=== PATIENT | female | born 1990 | race Caucasian/White ===

== ENCOUNTER → 2020-09-23 10:38 | Outpatient (CLI) | payer BC, SELFPAY ==
--- NOTE | 2020-09-23 | DI.US.S_ITS ---
PROCEDURE: US OB >= 14 WEEKS FETUS INDICATIONS: 20 WEEK ANATOMICAL SURVEY OUTSIDE/PRIOR DATING DATA: Last menstrual period (LMP): 04/29/2020. LMP-based estimated date of delivery (MARY): 02/03/2021 . First dating scan (date and location): 09/23/2020 . Estimated date of delivery (MARY) from first dating scan: 01/30/2021 . TECHNIQUE: Real-time scanning was performed of the fetus, with image documentation and biometric measurements. Endovaginal scanning: No COMPARISON: None. FINDINGS: General: A single living intrauterine gestation is present. Presentation: Vertex. Placenta: Placental position is posterior fundal , without previa. Amniotic fluid index: 10.1 cm, normal range is 5-24 cm. heart rate: 139 beats per minute. Maternal cervical canal: 4.1 cm long. Normal lower limit is 2.5 cm. biometrics: Biparietal diameter: 20 weeks 4 days Head circumference: 21 weeks Abdominal circumference: 22 weeks 1 day Femur length: 22 weeks 2 days Estimated gestational age from initial scan: 21 weeks 4 days Composite gestational age from present scan: 21 weeks 4 days Estimated weight and percentile: 471 g; 90 second percentile Measurement variability for biometric dating: +/- 7 days from 14 weeks to 15 weeks 6 days gestation, +/- 10 days from 16 weeks to 21 weeks 6 days gestation, +/- 2 weeks from 22 weeks to 27 weeks 6 days gestation, +/- 3 weeks for 28 weeks gestation or later. weight reference: 4500 g or EFW >90/95% is considered macrosomia or large for gestational age. EFW <10% is small for gestational age. EFW 5% or less is considered intra-uterine growth restriction. Anatomic survey: Neuro: Ventricles are non-dilated at less than 10 mm. Cisterna magna is normal at 3-11 mm. Cerebellum is normal in size and morphology. Nuchal skin fold: Normal at less than 6 mm between 14-21 weeks gestational age. Face: Nose and lips, facial profile are normal. Spine: No evidence for spina bifida. Heart: 4-chambered heart is present, with normal ventricular outflow tracts. Diaphragm: Diaphragm is intact. Stomach: Left-sided stomach is present. Kidneys: No hydronephrosis. Normal is less than 5 mm in 2nd trimester, less than 7 mm in 3rd trimester. Cord: 3-vessel cord has orthotopic insertion. Bladder: Normal in size. Extremities: All 4 extremities identified. IMPRESSION: 1. Single living IUP redemonstrated and interval growth is upper limits of normal. 2. Normal anatomic survey. Dictated by: Greg Marrero [facility] Interpreted: Terese Palma MD on 09/23/2020 at 14:02 Approved by: Terese Palma M.D. on 09/23/2020 at 15:05
== END ==
PROVIDERS: PCP Family Medicine; Referring Provider Family Medicine; Visit Provider Nurse Practitioner Obstetrics & Gynecology
DX: Z36.89 Encounter for other specified antenatal screening (principal); Z3A.21 21 weeks gestation of pregnancy
CPT/HCPCS: 76811

== ENCOUNTER → 2020-11-18 11:38 | Outpatient (CLI) | payer BC, SELFPAY ==
[2020-11-18 12:53] LABS: Hematocrit 34.6 % (36-46); Hemoglobin 12.1 g/dL (12.0-16.0); Mean Corpuscular HGB Conc 35.1 % (30-36); Mean Corpuscular Hemoglobin 31.3 PG (26-34); Mean Corpuscular Volume 89.4 fL (80-100); Platelet Count 154 X10^3/uL (150-400); Red Blood Cell Count 3.87 X10^6/uL (4.0-5.2); Red Cell Distribution Width 13.5 % (11.6-14.8); White Blood Cell Count 9.3 X10^3/uL (4.5-11.0)
[2020-11-18 12:56] LABS: GTT (PREG) 1 Hour PP 50gm Dose 69 mg/dL (76-139)
== END ==
PROVIDERS: PCP Family Medicine; Referring Provider Nurse Practitioner Obstetrics & Gynecology; Visit Provider Nurse Practitioner Obstetrics & Gynecology
DX: Z34.90 Encounter for supervision of normal pregnancy, unspecified, unspecified trimester (principal); Z13.1 Encounter for screening for diabetes mellitus; Z3A.29 29 weeks gestation of pregnancy
CPT/HCPCS: 36415; 82950; 85027

== ENCOUNTER → 2021-01-10 14:33 | Outpatient (ROUT) | payer BC, SELFPAY | PROVIDERS: PCP Family Medicine; Visit Provider Nurse Practitioner Obstetrics & Gynecology | DX: Z34.90 Encounter for supervision of normal pregnancy, unspecified, unspecified trimester (principal); Z36.85 Encounter for antenatal screening for Streptococcus B; Z3A.36 36 weeks gestation of pregnancy | CPT/HCPCS: 87081 ==

== ENCOUNTER 2021-02-06 21:46 | Inpatient (IN) | payer BC, SELFPAY ==
--- NOTE | 2021-02-06 21:51 | PM.OBHP.1 ---
OB HPI Date/Time Date of admission: 02/06/21 Date Patient Seen: 02/06/21 Time Patient Seen: 21:52 History of Present Condition Chief complaint: observation of labor : 2 Para: 1 Estimated Date of Delivery: 02/03/21 Estimated Gestational Age (weeks): 40.3 Narrative: Rena Wells is a 30 year old female @ [id number] by LMP and 10wk US presents for evaluation of labor. Contractions started this evening and have progressed in frequency and intensity. Noticed small amounts of bloody show when wiping tonight. +FM. No LOF. Uncomplicated PN care w/ CNM. Desires low intervention . History of Present care: good care, initiated at week # (10), number of visits (10) and pounds weight gain (29) Dating criteria: LMP confirmed by 1st trimester US Ultrasounds: normal mid trimester US Obstetrical complications: none Medical complications: none Preadmission Labs Blood type: O (+) positive -: Antibody screen: negative, GBS status: negative, HBsAG: negative, HIV: negative, HSV 1: negative and RPR/VDLR: negative -: Chlamydia screen: not detected and Gonorrhea screen: not detected -: Rubella: immune HCT: 34.6 HCAB: negative Cell-free DNA: Negative, male 1 hr GTT: 69 Prior (ies) History: 04/10/18- NSVB @ 414wks, 7#4oz, female, no meds, no lacs, no complications Evaluation Evaluation Baseline heart rate: 130 Variability: Moderate (11-25) monitor accelerations: Present Monitor Decelerations: Absent Contraction Frequency (minutes): 4 Uterine Contraction Intensity: Strong/Firm Status: Category l Cervical dilation (cm): 5 Cervical effacement (%): 80 station: -2 [facility] Medical History Acne (~2002) Allergies (~1991) Chicken pox (~1994) Fibroids (~2008) Irregular menstrual cycle (~2018) Family History Father No problems noted. Mother No problems noted. Grandfather Cancer Grandmother Cancer Social History Smoking Status: Former smoker quit status: has quit before second hand exposure: No alcohol intake: current substance use type: former substance user and marijuana Meds Home Medications and Allergies Home Medications Medication Instructions Recorded Confirmed Type multivitamin 1 tab PO DAILY 08/24/19 02/06/21 History Allergies Allergy/AdvReac Type Severity Reaction Status Date / Time adhesive [ADHESIVE] Allergy Mild LOCAL RASH Verified 10/19/19 14:56 corn [CORN] Allergy Mild BODY RASH Verified 10/19/19 14:56 gluten [GLUTEN] Allergy Mild ABD Verified 10/19/19 14:56 CRAMPING peanut [PEANUT] Allergy Mild BODY RASH Verified 10/19/19 14:56 Milk Containing Products Allergy Unknown Verified 10/19/19 14:56 [MILK CONTAINING PRODUCTS] Penicillins [PENICILLINS] Allergy Unknown Verified 10/19/19 14:56 soy [SOY] Allergy Unknown Verified 10/19/19 14:56 Sulfa (Sulfonamide Allergy Unknown UNKNOWN Verified 10/19/19 14:56 Antibiotics) [SULFA (SULFONAMIDE ANTIBIOTICS)] Review of Systems Review of Systems ROS: Yes All systems reviewed with the patient and are negative except as otherwise documented Exam Vital Signs (past 8 hours): BP 119/74, HR 78bpm, T 36.6C Temporal Resp Effort & Inspection: normal respiratory effort Auscultation: clear to auscultation bilaterally Cardio Rate: regular rate Rhythm: regular rhythm Heart Sounds: S1 normal and S2 normal Presentation: vertex Objective Labs Result Diagrams: 02/06/21 22:55 Assessment and Plan Assessment and Plan Assessment and Plan narrative: A: Term primipara Active labor No indication for GBS prophylaxis Cat I FHR P: Admit, routine orders. Continuous labor support. Anticipate NSVB.
[2021-02-06 22:32] VITALS: BP 119/74
[2021-02-06 23:05] LABS: Add Manual Diff / Slide Review NO; Basophils Absolute Auto 100 /uL (0-100); Basophils Percent Auto 0.6 % (0-2); Eosinophils Absolute Auto 100 /uL (0-450); Eosinophils Percent Auto 0.6 % (2-4); Hematocrit 35.8 % (36-46); Hemoglobin 12.3 g/dL (12.0-16.0); Lymphocytes Absolute Auto 2100 /uL (1100-4500); Lymphocytes Percent Auto 20.1 % (25-40); Mean Corpuscular HGB Conc 34.4 % (30-36); Mean Corpuscular Hemoglobin 30.9 PG (26-34); Mean Corpuscular Volume 89.8 fL (80-100); Monocytes Absolute Auto 800 /uL (0-900); Monocytes Percent Auto 7.6 % (3-14); Neutrophils Absolute Auto 7600 /uL (1500-7000); Neutrophils Percent Auto 71.1 % (50-75); Platelet Count 148 X10^3/uL (150-400); Red Blood Cell Count 3.99 X10^6/uL (4.0-5.2); Red Cell Distribution Width 12.7 % (11.6-14.8); White Blood Cell Count 10.6 X10^3/uL (4.5-11.0)
[2021-02-06 23:33] LABS: COVID19 - ADMIT (NP swab/PCR) Negative (Negative)
--- NOTE | 2021-02-07 01:15 | P.PCNOB_ITS ---
Labor & Delivery Delivery date: 02/07/21 Cervical ripening method: none Induction method: none Delivery monitor: external FHT and external uterine Route of delivery: L&D Laceration Description: None Estimated blood loss (mL): 450 Anesthesia Type: None Narrative: Patient labored well without medication or augmentation. Rena began to feel a spontaneous urge to push and was presumed to be complete. Minimal coaching and strong maternal efforts led to a NSVB of a viable baby boy in KATEY position w/ no nuchal cord and easy delivery of the shoulders. [place] was placed on maternal abdomen for drying and stimulation. Rena declined AMTSL. Placental separation was noted prior to cessation of pulsation so the cord was double clamped by CNM and cut by FOB. Hospital cord blood sample was collected. Spontaneous Schultze delivery of an apparently intact placenta, membranes and 3VC w/ a large amount of blood in the membranes. Funus massaged firm and bleeding minimal. Vagina and perineum inspected and intact. QBL 450mL, entirely w/ placenta. Both mother and baby stable and skin to skin as I left the room. Baby 1: Infant gender: Male Presentation: vertex Position: Right Occiput Anterior Placenta delivery description: Spontaneous Cord Vessel Description: 3 Vessels score (1 min): 7 score (5 min): 8 Narrative: weight: 3373grams/ 7#7oz Plan for aftercare: Routine care (Recommended 30 untis of pitocin in 500mL LR if any significant bleeding and patient agreed. )
[2021-02-07] MEDS: KETOROLAC 30 MG/ML VIAL IV (02:04)
--- NOTE | 2021-02-07 06:56 | PM.OBDS.1 ---
Discharge Providers Provider Date of admission: 02/06/21 21:46 Discharge Date: 02/07/21 Primary care physician: Will Alaniz DO Consults: 02/08/21 01:12 Consult to [place] Clerk Routine Comment: Discharge provider: Nasra Croft CNM Summary Discharge Diagnosis (1) Encounter for full-term uncomplicated delivery: Status: Acute Problem Details: Rena is voiding, ambulating and independently. Bleeding is scant. Tolerating her regular diet. Cramping pain with is well controlled Eager for discharge to home, as soon as possible. Time Spent with Patient Time attestation: Total time spent providing and/or coordinating discharge services: 25minutes Objective Labs Result Diagrams: 02/06/21 22:55 Labs: Laboratory Results - last 24 hr 02/06/21 02/06/21 02/06/21 22:15 22:55 22:55 WBC 10.6 RBC 3.99 L Hgb 12.3 Hct 35.8 L MCV 89.8 MCH 30.9 MCHC 34.4 RDW 12.7 Plt Count 148 L Neut % (Auto) 71.1 Lymph % (Auto) 20.1 L [place] % (Auto) 7.6 Eos % (Auto) 0.6 L Baso % (Auto) 0.6 Neut # (Auto) 7600 H Lymph # (Auto) 2100 [place] # (Auto) 800 Eos # (Auto) 100 Baso # (Auto) 100 SARS-CoV-2 (PCR) Negative Blood Type O Positive Antibody Screen Negative Exam Vital Signs (past 8 hours): BP 118/79, [id number], RR19/min, T 98.1F Temporal Other: Fundus firm @ U-1, lochia scant, perineum intact w/ minimal edema Discharge Plan Discharge Plan Patient Disposition: Home Discharge orders & Medications Prescriptions: New ibuprofen 600 mg Tablet 600 mg PO Q6HR PRN (Reason: Pain, Mild (1-3)) 14 Days Qty: 60 RF: 1 acetaminophen 325 mg Tablet 650 mg PO Q6HR PRN (Reason: Pain, Mild (1-3)) 14 Days Qty: 60 RF: 1 Continued multivitamin Tablet 1 tab PO DAILY 365 Days Qty: 100 RF: 4 Follow up/Referrals: Nasra Croft CNM [[employer]] - (02/21/21 @1145 by Telehealth 03/21/21 @1000 in office) Will Alaniz, [Primary Care Provider] - Diet/Activity/Treatments Diet: Diet as Tolerated and Regular Skin/Wound/Dressing Care Report to your healthcare provider any signs of infection, such as:: chills, fever, increased pain, unusual drainage and unusual redness Visit Report/Discharge Packet Instructions: DI for Depression Discharge Data Primary Care Provider: Will Alaniz
[2021-02-07 09:50] VITALS: BP 112/74; PULSE 86; RESP 18; TEMP 36.6
[2021-02-07 10:19] VITALS: BP 112/74; PULSE 86; RESP 18; TEMP 36.6
[2021-02-07] MEDS: IBUPROFEN 600 MG TABLET PO (10:55)
== END 2021-02-07 11:30 | disposition home or self-care (01) | DRG 807 ==
PROVIDERS: Admitting Provider Nurse Practitioner Obstetrics & Gynecology; PCP Family Medicine; Referring Provider Nurse Practitioner Obstetrics & Gynecology; Visit Provider Nurse Practitioner Obstetrics & Gynecology
DX: O80 Encounter for full-term uncomplicated delivery (principal); Z37.0 Single live birth; Z3A.40 40 weeks gestation of pregnancy
CPT/HCPCS: 36415; 59050; 85025; 86850; 86900; 86901; 87635; C9803; G0379; J1885

== ENCOUNTER → 2023-05-10 09:39 | Outpatient (CLI) | payer BC, SELFPAY ==
[2023-05-10 10:14] LABS: Add Manual Diff / Slide Review NO; Basophils Absolute Auto 0 /uL (0-100); Basophils Percent Auto 0.6 % (0-2); Eosinophils Absolute Auto 200 /uL (0-450); Eosinophils Percent Auto 3.7 % (2-4); Hematocrit 37.8 % (36-46); Lymphocytes Absolute Auto 1300 /uL (1100-4500); Lymphocytes Percent Auto 24.8 % (25-40); Mean Corpuscular HGB Conc 34.4 % (30-36); Mean Corpuscular Hemoglobin 29.7 PG (26-34); Mean Corpuscular Volume 86.3 fL (80-100); Monocytes Absolute Auto 500 /uL (0-900); Monocytes Percent Auto 9.4 % (3-14); Neutrophils Absolute Auto 3300 /uL (1500-7000); Neutrophils Percent Auto 61.5 % (50-75); Platelet Count 220 X10^3/uL (150-400); Red Blood Cell Count 4.38 X10^6/uL (4.0-5.2); Red Cell Distribution Width 12.7 % (11.6-14.8); White Blood Cell Count 5.3 X10^3/uL (4.5-11.0)
[2023-05-10 10:35] LABS: Alanine Aminotransferase 14 IU/L (<35); Albumin 4.2 g/dL (3.5-5.0); Albumin Globulin Ratio 1.4 (1.0-2.8); Alkaline Phosphatase 60 U/L (38-126); Aspartate Aminotransferase 17 IU/L (14-36); BUN Creatinine Ratio 20.6 (6-22); Bilirubin Total 0.4 mg/dL (0.2-1.3); Blood Urea Nitrogen 14 mg/dL (7-17); Calcium 9.1 mg/dL (8.4-10.2); Carbon Dioxide 29 mmol/L (22-32); Chloride 102 mmol/L (98-107); Cholesterol 157 mg/dL (140-199); Estimated Glomerular Filt Rate > 60 mL/min (>60); Glucose 88 mg/dL (70-100); HDL Cholesterol 69 mg/dL (40-60); HEMOLYSIS < 15 (0-50); LDL Cholesterol Calculated 81 mg/dL (<100); Potassium 4.5 mmol/L (3.4-5.1); Sodium 138 mmol/L (137-145); Total Protein 7.2 g/dL (6.3-8.2); Triglycerides 37 mg/dL (35-150)
[2023-05-10 10:49] LABS: Free T3, Triiodothyronine Free 4.99 pg/mL (2.77-5.27)
[2023-05-10 11:02] LABS: Thyroid Stimulating Hormone 1.38 uIU/mL (0.47-4.68)
[2023-05-11 06:36] LABS: Thyroid Peroxidase Antibodies 22 IU/mL (0-34)
== END ==
PROVIDERS: PCP Naturopath; Referring Provider Naturopath; Visit Provider Naturopath
DX: Z00.00 Encounter for general adult medical examination without abnormal findings (principal); R53.83 Other fatigue
CPT/HCPCS: 36415; 80053; 80061; 84439; 84443; 84481; 85025; 86376

== ENCOUNTER → 2024-11-23 15:16 | Outpatient (CLI) | payer BC, SELFPAY ==
--- NOTE | 2024-11-23 15:17 | DI.US.S_ITS ---
PROCEDURE: US PELVIC COMPLETE INDICATIONS: Pelvic pain TECHNIQUE: Real-time scanning was performed of the pelvic organs, with image documentation. Additional endovaginal scanning was necessary due to incomplete visualization of the adnexal and endometrial structures by transabdominal scanning. COMPARISON: None. FINDINGS: Uterus: 8.2 x 5.1 x 4.3 cm. Endometrium measures 8 mm. Ovaries: Nonenlarged bilaterally. Right ovary measures 8 cc. Left ovary measures 6 cc. Other: Suspect para ovarian cysts are present, on the right measuring up to 2.1 and on the left measuring up to 2.9 cm. No complicated/nodular components. IMPRESSION: No acute or significant pelvic abnormality on ultrasound. Suspected bilateral simple appearing para ovarian cysts. Dictated by: Dmitriy Hidalgo M.D. on 11/24/2024 at 9:55 Approved by: Dmitriy Hidalgo M.D. on 11/24/2024 at 9:56
== END ==
LOC: US 15:17
PROVIDERS: PCP Naturopath; Referring Provider Student in an Organized Health Care Education/Training Program; Visit Provider Student in an Organized Health Care Education/Training Program
DX: R10.2 Pelvic and perineal pain (principal)
CPT/HCPCS: 76830; 76856